=== PATIENT | male | born 1945 | race Caucasian/White ===

== ENCOUNTER 2023-01-16 09:20 | Outpatient (CLI) | payer OTHER ==
[2023-01-16 11:38] LABS: Hemoglobin 15.3 g/dL (13.5-17.5); Mean Corpuscular HGB CONC 34.3 g/dL (32.0-36.0); Mean Corpuscular Volume 90.3 fl (81.2-95.1); Mean Platelet Volume 10.3 fl (7.4-10.4); Platelet Count 128 10x3/uL (150-450); RBC Distribution Width 12.8 % (11.5-14.5); Red Blood Cell (RBC) Count 4.94 10x6/uL (4.32-5.72); White Blood Cell (WBC) Count 5.6 10x3/uL (3.5-10.5)
[2023-01-16 11:57] LABS: Anion Gap 15 mmol/L (10-20); BUN (Urea Nitrogen) 21 mg/dL (8.4-25.7); Calc. Creatinine Clearance 0 mL/min (70-130); Calcium 9.9 mg/dL (7.8-10.44); Carbon Dioxide 28 mmol/L (23-31); Chloride 101 mmol/L (98-107); Estimated GFR 63; Glucose 165 mg/dL (83-110); Potassium 4.2 mmol/L (3.5-5.1); Sodium 140 mmol/L (136-145)
[2023-01-16 11:58] LABS: Prothrombin Time 10.8 sec (9.5-12.1)
== END 2023-01-16 09:21 | disposition home or self-care (01) ==
LOC: CSHLAB 09:20
PROVIDERS: ATTEND Specialist
DX: Z01.818 Encounter for other preprocedural examination (principal); I25.10 Atherosclerotic heart disease of native coronary artery without angina pectoris
CPT/HCPCS: 80048; 85027; 85610; 93005; 93010

== ENCOUNTER → 2023-01-17 | Day surgery (SDC) | payer OTHER ==
[~2023-01-17] MED LIST: Adenosine 6 MG/2 ML VIAL ONE; Ascorbic Acid 500 mg Chewable Tablet ONE; Aspirin 325 MG TAB ONE; Clopidogrel Bisulfate 300 MG TAB ONE; Fentanyl 100 MCG/2 ML VIAL ONE; Heparin 10,000 UNITS/ 10 ML VIAL ONE; Iopamidol 300 61% 100 ML VIAL FS ONE; Lidocaine 1% (PF) 30 ML VIAL ONE; Midazolam HCl 2 mg/2 ml Vial ONE; Nitroglycerin 50 MG/250 ML BOT 250 ML ONE
== END ==
LOC: CSHCCL 08:01
PROVIDERS: ATTEND Specialist
DX: I25.118 Atherosclerotic heart disease of native coronary artery with other forms of angina pectoris (principal); I50.32 Chronic diastolic (congestive) heart failure; I11.0 Hypertensive heart disease with heart failure; E78.2 Mixed hyperlipidemia; E11.59 Type 2 diabetes mellitus with other circulatory complications; I77.1 Stricture of artery; E55.9 Vitamin D deficiency, unspecified; Z79.84 Long term (current) use of oral hypoglycemic drugs; Z79.899 Other long term (current) drug therapy; Z79.82 Long term (current) use of aspirin; Z95.5 Presence of coronary angioplasty implant and graft
CPT/HCPCS: 92937; 92978; 93455; 99152; 99153; C1753; C1760; C1769; C1874; C1887; C9604; J0153; J1644; J2001; J2250; J3010; Q9967

== ENCOUNTER 2023-03-27 11:56 | Outpatient (CLI) | payer OTHER ==
[2023-03-27 13:19] LABS: Hemoglobin 13.9 g/dL (13.5-17.5); Mean Corpuscular HGB CONC 34.8 g/dL (32.0-36.0); Mean Corpuscular Volume 88.9 fl (81.2-95.1); Mean Platelet Volume 10.5 fl (7.4-10.4); Platelet Count 103 10x3/uL (150-450); Red Blood Cell (RBC) Count 4.49 10x6/uL (4.32-5.72); White Blood Cell (WBC) Count 5.8 10x3/uL (3.5-10.5)
[2023-03-27 13:33] LABS: Prothrombin Time 10.6 sec (9.5-12.1)
[2023-03-27 13:45] LABS: Anion Gap 11 mmol/L (10-20); BUN (Urea Nitrogen) 19 mg/dL (8.4-25.7); Calc. Creatinine Clearance 0 mL/min (70-130); Calcium 9.3 mg/dL (7.8-10.44); Carbon Dioxide 31 mmol/L (23-31); Chloride 102 mmol/L (98-107); Estimated GFR 59; Glucose 233 mg/dL (83-110); Potassium 4.3 mmol/L (3.5-5.1); Sodium 140 mmol/L (136-145)
== END 2023-03-27 11:57 | disposition home or self-care (01) ==
LOC: CSHLAB 11:56
PROVIDERS: ATTEND Specialist
DX: Z01.818 Encounter for other preprocedural examination (principal); I25.10 Atherosclerotic heart disease of native coronary artery without angina pectoris
CPT/HCPCS: 80048; 85027; 85610

== ENCOUNTER 2023-03-28 08:58 | Day surgery (SDC) | payer OTHER ==
[2023-03-28] MEDS ORDERED: Ascorbic Acid 500 mg Chewable Tablet ONE (09:06)
[2023-03-28] MEDS ORDERED: Aspirin Chewable 81 MG TAB ONE (09:06)
[2023-03-28] MEDS ORDERED: Adenosine 6 MG/2 ML VIAL ONE (09:22)
[2023-03-28] MEDS ORDERED: Lidocaine 1% (PF) 30 ML VIAL ONE (09:22)
[2023-03-28] MEDS ORDERED: Nitroglycerin 50 MG/250 ML BOT 250 ML ONE (09:22)
[2023-03-28] MEDS ORDERED: Heparin 10,000 UNITS/ 10 ML VIAL ONE (09:22)
[2023-03-28 09:57] VITALS: BP 160/78; TEMP 98.5
[2023-03-28] MEDS ORDERED: Midazolam HCl 2 mg/2 ml Vial ONE (10:56)
[2023-03-28] MEDS ORDERED: Fentanyl 250 MCG/5 ML VIAL ONE (10:56)
[2023-03-28] MEDS ORDERED: fentaNYL 50 mcg/mL 1 mL Vial ONE (11:08)
[2023-03-28] MEDS ORDERED: Atropine Sulfate 0.4 mg/1 ml Vial ONE (11:44)
[2023-03-28] MEDS ORDERED: Clopidogrel Bisulfate 75 MG TAB ONE (13:21)
== END 2023-03-28 15:40 | disposition home or self-care (01) ==
LOC: CSHCCL 08:58
PROVIDERS: ATTEND Specialist
DX: I25.118 Atherosclerotic heart disease of native coronary artery with other forms of angina pectoris (principal); R06.09 Other forms of dyspnea; I10 Essential (primary) hypertension; E78.5 Hyperlipidemia, unspecified
CPT/HCPCS: 85347; J0153; J0461; J1644; J2001; J2250; J3010